=== PATIENT | male | born 1990 | race Caucasian/White ===

== ENCOUNTER 2019-09-09 11:26 | Emergency (ER) | payer BC, OTHER ==
[~2019-09-09] VITALS: Ht 180.3 cm; Wt 98.7 kg
[2019-09-09] MEDS ORDERED: KETOROLAC 30 MG/1 ML ONE (11:55)
[2019-09-09] MEDS ORDERED: METHOCARBAMOL 750 MG TABLET ONE (11:55)
[2019-09-09] MEDS ORDERED: KETOROLAC 30 MG/1 ML IM ONE (12:00)
[2019-09-09] MEDS ORDERED: METHOCARBAMOL 750 MG TABLET PO ONE (12:00)
[2019-09-09 14:03] VITALS: BP 135/86
--- NOTE | 2019-09-09 14:30 | NUR ---
imaging results reviewed by RICHARD Marie instructed RN to discharge pt. pt denies abd pain, denies constipation, no n/v. pt given dc instructions and script, educated regarding dc rx for robaxan and naproxen. pt a&o, resps even and unlabored. pt reports pain improved s/p meds given by REMY Monroe. c collar applied in triage and removed by richard. pt instrucetd not to drive d/t meds given, to drive pt home. pt amb to dc desk with steady gait. all questions answered.
== END 2019-09-09 14:17 | disposition home or self-care (01) ==
LOC: ED 12:34
DX: S39.012A Strain of muscle, fascia and tendon of lower back, initial encounter (principal); S16.1XXA Strain of muscle, fascia and tendon at neck level, initial encounter; V49.49XA Driver injured in collision with other motor vehicles in traffic accident, initial encounter; Y93.89 Activity, other specified; Y92.89 Other specified places as the place of occurrence of the external cause; Y99.8 Other external cause status
CPT/HCPCS: 72110; 72125; 96372; 99284; J1885

== ENCOUNTER 2020-07-15 07:50 | Emergency (ER) | payer BC, OTHER ==
[~2020-07-15] VITALS: Ht 154.9 cm; Wt 101.6 kg
--- NOTE | 2020-07-15 08:16 | NUR ---
PT WITH N/V AND OCCATIONAL SOB. SENT BY EMPLOYER FOR COVID TEST.
--- NOTE | 2020-07-15 08:20 | NUR ---
assumed are of pt. pt here for COVID screen as he states that he had a positive exposure at work. pt reports that he is having generalized body aches with nausea and one episode of vomiting today and some loose stools. pt is in no apparent resp. distress. no family at bedside. pt reports that he has not taken anything for his sx FRINGE KNOTTER Doreen BARRETT at bedside for eval
[2020-07-15 08:21] VITALS: BP 140/83
[2020-07-15] MEDS ORDERED: ONDANSETRON ODT 4 MG PO PRN (08:30)
[2020-07-15] MEDS ORDERED: KETOROLAC 30 MG/1 ML IM ONE (08:30)
[2020-07-15] MEDS ORDERED: KETOROLAC 30 MG/1 ML ONE (08:32)
[2020-07-15] MEDS ORDERED: ONDANSETRON ODT 4 MG ONE (08:33)
--- NOTE | 2020-07-15 09:00 | NUR ---
CXR has been to bedside
--- NOTE | 2020-07-15 09:02 | NUR ---
report to Clay ALBERTO
== END 2020-07-15 09:44 | disposition home or self-care (01) ==
LOC: ED 08:40
DX: J06.9 Acute upper respiratory infection, unspecified (principal); Z20.828 Contact with and (suspected) exposure to other viral communicable diseases; B34.9 Viral infection, unspecified; R51.9 Headache, unspecified; R05 Cough; R09.81 Nasal congestion; M79.10 Myalgia, unspecified site; R11.2 Nausea with vomiting, unspecified
CPT/HCPCS: 71045; 87635; 96372; 99284; J1885; Q0162